=== PATIENT | male | born 1940 | race Hispanic/Latino ===

== ENCOUNTER 2019-09-17 06:31 | Emergency (ER) | payer OTHER ==
[~2019-09-17] VITALS: Ht 167.6 cm; Wt 91.2 kg
--- OUTSIDE RECORDS SUMMARY | 2019-09-17 06:32 | XMS REPORT | Summary of Care ---
Author Author [facility] Organization [facility] Address Unknown Phone Unavailable Care Team Providers Care Ordnance Handler Name Role Phone Per Medrano MD PCP Reason for Visit * Reason Comments Medical Concern Sensorineural hearing loss of both ears Encounter Details Care Team Description Date Type Department Kar Angelo MD [address] [place] [address] [phone] Medical Concern (Sensorineural hearing loss of both ears) 08/19/2019 Office Visit [facility] Otolaryngology [address] [place] [phone] Allergies No Known Allergiesdocumented as of this encounter (statuses as of 08/22/2019) Medications End Date Status Medication Sig Dispensed Refills Start Date Active omeprazole (PRILOSEC) 20 Take 20 mg by 0 MG capsule mouth daily. Active tramadol (ULTRAM) 50 MG Take 50 mg by 0 tablet mouth as needed for Pain. Active rosuvastatin (CRESTOR) 20 Take 20 mg by 0 MG tablet mouth daily. Active metoprolol (LOPRESSOR) 50 Take 50 mg by 0 MG tablet mouth two times daily. Active lisinopril (PRINIVIL, Take 20 mg by 0 ZESTRIL) 20 MG tablet mouth two times daily. Active acetaminophen (TYLENOL) Take by 0 500 mg tablet mouth every 6 hours as needed for Pain. Active ASPIRIN 81 OR Take by 0 mouth daily. Active Multiple Take by 0 Vitamins-Minerals mouth daily. (MULTIVITAMIN ADULT OR) documented as of this encounter (statuses as of 08/22/2019) Active Problems Not on filedocumented as of this encounter (statuses as of 08/22/2019) Social History Date Tobacco Use Types Packs/Day Years Used Never Smoker Smokeless Tobacco: Never Used Drinks/Week oz/Week Comments Alcohol Use Not Currently Sex Assigned at Date Recorded Not on file Industry Job Start Date Occupation Not on file Not on file Not on file Travel End Travel History Travel Start No recent travel history available. documented as of this encounter Last Filed Vital Signs Reading Time Taken Comments Vital Sign 166/77 08/19/2019 1:18 PM CDT Blood Pressure 72 08/19/2019 1:18 PM CDT Pulse - - Temperature 18 08/19/2019 1:18 PM CDT Respiratory Rate - - Oxygen Saturation - - Inhaled Oxygen Concentration 91.2 kg (201 lb) 08/19/2019 1:18 PM CDT Weight 167.6 cm (5' 6") 08/19/2019 1:18 PM CDT Height 32.44 08/19/2019 1:18 PM CDT Body Mass Index documented in this encounter Progress Notes * Kar Angelo MD - 08/19/2019 1:15 PM CDT Otolaryngology Note Date: 08/19/2019 The patient returns following a right cochlear implant ([id number]) on 07/30/2019. He has been doing well since surgery. He denies dizziness, otalgia, taste changes, otorrhea. Exam: gen - NAD, voice clear Head - surgical site healing well in the right post-auricular area. The implant is well seated Ears - EAC clean and clear. The TM is in tact. There is some hemotympanum. A/P: s/p the aforementioned surgery and doing well. -Audiology activation is scheduled for tomorrow. -He will return in 3 months for re-evaluation with me. Kar Calderon MD Otology, Neurotology and Skull Base Car CustomizerPaste Up Artist and Ghada Gomes Endowed Chair in Otolaryngology, [place] [facility] department of Otolaryngology-Head and Neck Car CustomizerPaste Up Artist, Department of Neurosurgery [facility] and [facility] documented in this encounter Plan of Treatment Care Team Description Date Type Specialty Pradeep, Ruben But[address] [place] [address] [phone] 08/27/2019 Clinical Audiology Support Filomena Fernández AuD [address] [place] [address] [phone] 09/27/2019 Clinical Audiology Support Kar Angelo MD [address] [place] [address] [phone] 11/10/2019 Office Visit Otolaryngology Health Maintenance Due Date Last Done Comments MEDICARE AWV 1938 TETANUS SHOT (ADULT) 1953 BMI FOLLOW UP PLAN 1956 FALL SCREEN 2003 FLU VACCINE > 6 MONTHS 05/27/2019 PNEUMOVAX >=65 (PPSV23) Completed 08/03/2008 PREVNAR >=65 (PCV13) Completed 08/01/2015 documented as of this encounter Results Not on filedocumented in this encounter Visit Diagnoses Diagnosis Sensorineural hearing loss (SNHL) of both ears - Primary Presbycusis of both ears Presbyacusis documented in this encounter Insurance Type Payer Benefit Subscriber ID Effective Phone Address Plan / Dates Group Medicare [facility] xxxxxxxxx 2019-P [id number] [place] [address] documented as of this encounter
--- OUTSIDE RECORDS SUMMARY | 2019-09-17 06:33 | XMS REPORT ---
Author Author [facility] Address Unknown Phone Unavailable Care Team Providers Care Correctional Officer Sergeant Name Role Phone Denis CONNELL Unavailable Unavailable Problems This patient has no known problems. Allergies, Adverse Reactions, Alerts This patient has no known allergies or adverse reactions. Medications This patient has no known medications. Results Test Description Test Time Test Comments Text Results Atomic Results Result Comments BASIC METABOLIC PANEL 2019-07-30 07:23:00 SODIUM (BEAKER) (test wcsw=329) 139 meq/L 136-145 POTASSIUM (BEAKER) (test kxzk=425) 4.6 meq/L 3.5-5.1 CHLORIDE (BEAKER) (test bsql=030) 107 meq/L 98-107 CO2 (BEAKER) (test nwol=436) 25 meq/L 22-29 BLOOD UREA NITROGEN (BEAKER) (test oomg=534) 30 mg/dL 7-21 CREATININE (BEAKER) (test qael=470) 1.33 mg/dL 0.57-1.25 GLUCOSE RANDOM (BEAKER) (test jdmp=521) 109 mg/dL 70-105 CALCIUM (BEAKER) (test asgz=107) 9.6 mg/dL 8.4-10.2 EGFR (BEAKER) (test hvrj=7365) 52 mL/min/1.73 sq m ESTIMATED GFR IS NOT ACCURATE CREATININE CLEARANCE IN PREDICTING GLOMERULAR FILTRATION RATE. ESTIMATED GFR IS NOT APPLICABLE FOR DIALYSIS PATIENTS. POCT-HEMOGLOBIN [id number] 06:57:00* Test Item Value Reference Range Comments POC-HEMOGLOBIN METER (BEAKER) (test euax=8517) 12.5 g/dL 13.0-16.8 [address]ED [address] [address]
--- NOTE | 2019-09-17 07:13 | NUR ---
900CC URINE OUTPUT FROM STRAIGHT CATH, STERILE TECHNIQUE USED , NO COMPLICATIONS NOTED
--- NOTE | 2019-09-17 07:16 | NUR ---
REPORT GIVEN TO PATRICK STRANGE
[2019-09-17 07:17] LABS: BILIRUBIN,URINE NEGATIVE (NEGATIVE); CLARITY,URINE CLEAR (CLEAR); COLOR,URINE YELLOW (YELLOW); KETONES,URINE NEGATIVE (NEGATIVE); LEUKOCYTE ESTERASE ,URINE NEGATIVE (NEGATIVE); NITRITE,URINE NEGATIVE (NEGATIVE); PROTEIN,URINE DIPSTICK NEGATIVE (NEGATIVE); URINE UROBILINOGEN 0.2 mg/dL (0.2 - 1)
[2019-09-17] MEDS ORDERED: TAMSULOSIN HCL 0.4 MG CAP PO SCH (07:30)
[2019-09-17 07:36] LABS: RBC,URINE >50 /HPF (0-5); WBC,URINE (MAN) 0-5 /HPF (0-5)
[2019-09-17 07:37] LABS: BACTERIA,URINE FEW /HPF; EPITHELIAL CELLS,URINE FEW /LPF
[2019-09-17] MEDS ORDERED: FLOMAX0.4 MG PO (08:16)
== END 2019-09-17 08:53 | disposition home or self-care (01) ==
LOC: ER 06:31
DX: R30.0 Dysuria (principal); R33.9 Retention of urine, unspecified; I10 Essential (primary) hypertension
CPT/HCPCS: 51700; 81001; 99282

== ENCOUNTER 2021-09-15 07:28 | Emergency (ER) | payer OTHER ==
[~2021-09-15] VITALS: Ht 167.6 cm; Wt 91.2 kg
[~2021-09-15 07:28] MED LIST: FLOMAX0.4 MG PO
[2021-09-15 08:07] LABS: BASOPHILS % 0.4 % (0.0-1.0); EOSINOPHILS # (AUTO) 0.2 (0.0-0.4); EOSINOPHILS % 2.6 % (0.0-6.0); HEMATOCRIT 40.2 % (38.2-49.6); HEMOGLOBIN 13.1 g/dL (14.0-18.0); LYMPHOCYTES # (AUTO) 2.1 (1.0-3.2); LYMPHOCYTES % 36.9 % (18.0-39.1); MEAN CORPUSCULAR HGB CONC 32.6 g/dL (31-35); MONOCYTES # (AUTO) 0.6 (0.2-0.8); MONOCYTES % 11.2 % (4.4-11.3); NEUTROPHILS # (AUTO) 2.8 (2.1-6.9); NEUTROPHILS % 48.4 % (38.7-80.0); PLATELET COUNT 124 x10e3/uL (140-360); RED BLOOD COUNT 4.37 x10e6/uL (4.3-5.7); RED CELL DISTRIBUTION WIDTH 12.8 % (11.7-14.4)
[2021-09-15 08:19] LABS: ALBUMIN/GLOBULIN RATIO 1.1 (0.8-2.0); ANION GAP 13.5 mmol/L (8-16); CREATININE, SERUM 1.37 mg/dL (0.72-1.25); POTASSIUM 4.5 mmol/L (3.5-5.1)
== END 2021-09-15 09:07 | disposition home or self-care (01) ==
LOC: ER 07:38
DX: E87.5 Hyperkalemia (principal); I10 Essential (primary) hypertension; E78.5 Hyperlipidemia, unspecified; K21.9 Gastro-esophageal reflux disease without esophagitis; Z86.73 Personal history of transient ischemic attack (TIA), and cerebral infarction without residual deficits
CPT/HCPCS: 36415; 80053; 85025; 93005; 99283

== ENCOUNTER 2025-01-05 15:25 | Emergency (ER) | payer MEDICARE, OTHER ==
[~2025-01-05] VITALS: Ht 167.6 cm; Wt 100.9 kg
[2025-01-05 15:30] VITALS: TEMP 98.4
[2025-01-05 15:52] LABS: BASOPHILS % 0.4 % (0.0-1.0); EOSINOPHILS # (AUTO) 0.1 (0.0-0.4); EOSINOPHILS % 0.8 % (0.0-6.0); HEMATOCRIT 37.5 % (38.2-49.6); HEMOGLOBIN 12.7 g/dL (14.0-18.0); LYMPHOCYTES # (AUTO) 1.7 (1.0-3.2); LYMPHOCYTES % 22.4 % (18.0-39.1); MEAN CORPUSCULAR HEMOGLOBIN 29.9 pg (28-32); MEAN CORPUSCULAR HGB CONC 33.9 g/dL (31-35); MEAN CORPUSCULAR VOLUME 88.2 fL (81-99); MONOCYTES # (AUTO) 0.8 (0.2-0.8); MONOCYTES % 10.4 % (4.4-11.3); NEUTROPHILS % 65.7 % (38.7-80.0); PLATELET COUNT 150 x10e3/uL (140-360); RED BLOOD COUNT 4.25 x10e6/uL (4.3-5.7); RED CELL DISTRIBUTION WIDTH 13.2 % (11.7-14.4); WHITE BLOOD COUNT 7.62 x10e3/uL (4.8-10.8)
[2025-01-05 16:11] LABS: CORONAVIRUS COVID-19 AG NEGATIVE (NEGATIVE); INFLUENZA A AG NEGATIVE (NEGATIVE); INFLUENZA B AG NEGATIVE (NEGATIVE)
[2025-01-05 16:13] LABS: ALBUMIN 3.9 g/dL (3.5-5.0); ALBUMIN/GLOBULIN RATIO 1.1 (0.8-2.0); ANION GAP 14.7 mmol/L (8-16); BILIRUBIN,TOTAL 0.5 mg/dL (0.2-1.2); CREATININE, SERUM 1.71 mg/dL (0.72-1.25); POTASSIUM 4.7 mmol/L (3.5-5.1); TOTAL PROTEIN 7.3 g/dL (6.5-8.1)
[2025-01-05] MEDS: SODIUM CHLORIDE 0.9% 500ML 500 ML IV STA (17:14)
[2025-01-05 17:20] VITALS: PULSE 79; RESP 18
[2025-01-05] MEDS ORDERED: IOPAMIDOL 370 MG/ML 100 ML INFUS..BTL INJ ONE (18:15)
[2025-01-05 19:13] LABS: BILIRUBIN,URINE NEGATIVE (NEGATIVE); CLARITY,URINE CLEAR (CLEAR); COLOR,URINE YELLOW (YELLOW); GLUCOSE, URINE NEGATIVE (NEGATIVE); KETONES,URINE NEGATIVE (NEGATIVE); LEUKOCYTE ESTERASE ,URINE TRACE (NEGATIVE); NITRITE,URINE NEGATIVE (NEGATIVE); PH,URINE 5.5 (5 - 7); PROTEIN,URINE DIPSTICK NEGATIVE (NEGATIVE); URINE UROBILINOGEN 0.2 mg/dL (0.2 - 1)
[2025-01-05 19:17] LABS: EPITHELIAL CELLS,URINE RARE /LPF; HYALINE CASTS 0-1 (0-1); RBC,URINE 0-5 /HPF (0-5); WBC,URINE (MAN) 0-5 /HPF (0-5)
[2025-01-05] MEDS ORDERED: ONDANSETRON ODT4 MG PO (19:35)
[2025-01-05] MEDS ORDERED: LOPERAMIDE2 MG PO (19:35)
[2025-01-05 20:26] VITALS: BP 134/78; PULSE 68; RESP 18; TEMP 98.2; O2SAT 100
== END 2025-01-05 20:27 | disposition home or self-care (01) ==
LOC: ER 15:37
DX: K92.1 Melena (principal); K52.9 Noninfective gastroenteritis and colitis, unspecified; I10 Essential (primary) hypertension; E78.5 Hyperlipidemia, unspecified; G40.909 Epilepsy, unspecified, not intractable, without status epilepticus; K21.9 Gastro-esophageal reflux disease without esophagitis; M19.09 Primary osteoarthritis, other specified site; M54.9 Dorsalgia, unspecified; G89.29 Other chronic pain; Z11.52 Encounter for screening for COVID-19
CPT/HCPCS: 36415; 74177; 80053; 81001; 85025; 87428; 99284; J7040; Q9967